=== PATIENT | female | born 1970 | race Two or more races ===

== ENCOUNTER 2020-08-29 09:10 | Outpatient (CLI) | payer OTHER | END 2020-08-29 09:27 | disposition home or self-care (01) | LOC: SONOGRAMA 09:10 → MAMO-SONO 09-18 08:30 | PROVIDERS: ATTEND Obstetrics & Gynecology Gynecology | DX: N84.0 Polyp of corpus uteri (principal); N92.0 Excessive and frequent menstruation with regular cycle; D25.9 Leiomyoma of uterus, unspecified ==